=== PATIENT | female | born 1995 | race African-American/Black ===

== ENCOUNTER 2017-04-08 13:24 | Emergency (ER) | payer OTHER ==
[2017-04-08] MEDS: ACETAMINOPHEN 325 MG TABLET. PO ×2 (14:20)
== END 2017-04-08 14:59 | disposition home or self-care (01) ==
LOC: ER 13:24
DX: M25.572 Pain in left ankle and joints of left foot (principal); J45.909 Unspecified asthma, uncomplicated; F12.10 Cannabis abuse, uncomplicated
CPT/HCPCS: 73610; 73630; 99284

== ENCOUNTER → 2017-10-29 | Emergency (ER) | payer OTHER ==
[~2017-10-29] VITALS: Ht 162.6 cm; Wt 78.5 kg
[~2017-10-29] MED LIST: ACET325T9 PO; AMOX500C PO; ERYT500T17 PO; FLUC150T PO; HYDR15SO4 PO
[2017-10-29 19:48] VITALS: BP 139/90
--- NOTE | 2017-10-29 20:52 | PHYS DOC ---
Past Medical History Past Medical History: Asthma Past Surgical History: No Surgical History Alcohol Use: None Drug Use: Marijuana Adult General Chief Complaint Chief Complaint: ABSCESS HPI HPI Patient is a 22 year old female who presents to emergency room with complaints of a tender swollen area in her right axilla for the last 2 days. She states she started having problems with this a year and a half ago. She denies any fever, drainage, redness, warmth, or injury. She states she does not have any medical or surgical history, she is not allergic to any medications and does not take any medications. Currently, she reports her pain as a constant 8 out of 10 on the pain scale she states that when the area is touched it becomes a 10 out of 10 on the pain scale. Review of Systems Review of Systems Constitutional: Denies fever or chills [] Musculoskeletal: Denies back pain or joint pain [] Integument: Denies rash, reports hard tender knot in R axilla for the last 2 days, denies any drainage, warmth, or redness. Neurologic: Denies focal weakness or sensory changes [] All other systems were reviewed and found to be within normal limits, except as documented in this note. Allergies Allergies Allergies Coded Allergies Type Severity Reaction Last Updated Verified No Known Drug Allergies 02/04/16 No Physical Exam Physical Exam Constitutional: Well developed, well nourished, no acute distress, non-toxic appearance. [] HENT: Normocephalic, atraumatic, bilateral external ears normal, nose normal. [ ] Eyes: PERRLA, conjunctiva normal, no discharge. [] Skin: Warm, dry, no erythema, no rash; palpable, tender, firm, round, area to medial R axilla consistent with hydradenitis suppurativa Neurologic: Alert and oriented X 3, normal motor function, normal sensory function, no focal deficits noted. [] Psychologic: Affect normal, judgement normal, mood normal. [] Current Patient Data Vital Signs Vital Signs Date Time Temp Pulse Resp B/P (MAP) Pulse Ox O2 Delivery O2 Flow Rate FiO2 10/29/17 19:48 98.7 80 16 139/90 (106) 98 Room Air 98.7 EKG EKG [] Radiology/Procedures Radiology/Procedures [] Course & Med Decision Making Course & Med Decision Making Pertinent Labs and Imaging studies reviewed. (See chart for details) Patient is a 22-year-old female who presents to emergency room today with complaints of a tender swollen area in her right axilla for the last 2 days. Her vital signs are stable in the emergency department. Physical exam patient history are consistent with hidradenitis suppurativa, treated as such. Prescription written for erythromycin 500 mg twice a day for 2 weeks. Patient advised to follow-up with her primary care provider [facility] for further management of this condition.Patient verbalized an understanding of home care, medications, follow-up, and return to ED instructions and was in agreement with the plan of care. [] Dragon Disclaimer Dragon Disclaimer This electronic medical record was generated, in whole or in part, using a voice recognition dictation system. Departure Departure Impression: Primary Impression: Hidradenitis suppurativa of right axilla Disposition: HOME, SELF-CARE Condition: STABLE Referrals: UNKNOWN PCP NAME (PCP) Patient Instructions: Hidradenitis Suppurativa, Sweat Gland Abscess Additional Instructions: Fill Prescription and use as directed. Strongly recommend that you stop shaving your armpits. You may apply warm moist packs for comfort. Follow-up with her primary care doctor or [facility] within the next week for further evaluation and management of this condition. Return to the ER for symptoms worsen Scripts Erythromycin Base (ERYTHROMYCIN) 500 Mg Tablet 500 MG PO BID for 14 Days, #28 TAB 0 Refills Prov: PIPPA LAINEZ APRN 10/29/17 PIPPA LAINEZ APRN Oct 29, 2017 20:51
== END ==
LOC: ER 18:28
DX: L73.2 Hidradenitis suppurativa (principal); J45.909 Unspecified asthma, uncomplicated
CPT/HCPCS: 99283

== ENCOUNTER 2018-07-15 16:52 | Emergency (ER) | payer OTHER ==
[~2018-07-15] VITALS: Ht 162.6 cm; Wt 77.1 kg
[~2018-07-15 16:52] MED LIST changes: -HYDR15SO4 PO; +HYDR15SO6 PO
[2018-07-15 17:32] LABS: BILIRUBIN,URINE NEGATIVE (NEG); CLARITY,URINE CLEAR; COLOR,URINE YELLOW; NITRITE,URINE NEGATIVE (NEG); PH,URINE 7.5; PROTEIN,URINE NEGATIVE (NEG-TRACE)
[2018-07-15 17:37] LABS: RBC,URINE 0 /HPF (0-2); SQUAMOUS EPITHELIAL CELL,UR MOD /LPF; WBC,URINE 0 /HPF (0-4)
[2018-07-15 17:38] LABS: BACTERIA,URINE FEW /HPF (0-FEW)
--- NOTE | 2018-07-15 17:40 | PHYS DOC ---
Past Medical History Past Medical History: Asthma (AGUSTIN TAN APRN) Past Surgical History: No Surgical History (AGUSTIN TAN APRN) Alcohol Use: None Drug Use: Marijuana (AGUSTIN TAN APRN) Adult General Chief Complaint Chief Complaint: URINARY FREQUENCY HPI HPI Patient is a 22 year old female who presents with urinary frequency and pressure times a week. Has associated symptoms of nausea. Has also been having pelvic pain and RLQ pain. Rates her pain 7 out of 10 character the pain is pressure. (AGUSTIN TAN APRN) Review of Systems Review of Systems Constitutional: Denies fever or chills [] Eyes: Denies change in visual acuity, redness, or eye pain [] HENT: Denies nasal congestion or sore throat [] Respiratory: Denies cough or shortness of breath [] Cardiovascular: No additional information not addressed in HPI [] GI: Denies vomiting, bloody stools or diarrhea but reports abdominal pain (RLQ, and pelvic pain, and nausea [] : Denies dysuria or hematuria but reports frequency and pressure. Musculoskeletal: Reports Left lower back pain denies joint pain. Integument: Denies rash or skin lesions [] Neurologic: Denies headache, focal weakness or sensory changes [] Endocrine: Denies polyuria or polydipsia [] Complete systems were reviewed and found to be within normal limits, except as documented in this note. (AGUSTIN TAN APRN) Current Medications Current Medications Current Medications Medications (Trade) Dose Ordered Sig/Carla Start Time Stop Time Status Last Admin Dose Admin Azithromycin (Zithromax) 1,000 mg 1X ONCE 07/15/18 19:00 07/15/18 19:01 DC 07/15/18 19:51 1,000 MG Ceftriaxone Sodium (Rocephin Im) 250 mg 1X ONCE 07/15/18 19:00 07/15/18 19:01 DC 07/15/18 19:51 250 MG Info (CONTRAST GIVEN -- Rx MONITORING) 1 each PRN DAILY PRN 07/15/18 18:15 07/15/18 20:32 DC Iohexol (Omnipaque 300 Mg/ml) 75 ml 1X ONCE 07/15/18 18:00 07/15/18 18:03 DC 07/15/18 19:05 75 ML Ondansetron HCl (Zofran) 4 mg 1X ONCE 07/15/18 18:00 07/15/18 18:01 DC 07/15/18 18:29 4 MG Sodium Chloride 1,000 ml @ 1,000 mls/hr Q1H 07/15/18 17:46 07/15/18 18:45 DC 07/15/18 18:29 1,000 MLS/HR (ANATOLIY RAMOS MD) Allergies Allergies Allergies Coded Allergies Type Severity Reaction Last Updated Verified No Known Drug Allergies 02/04/16 No (ANATOLIY RAMOS MD) Physical Exam Physical Exam Constitutional: Well developed, well nourished, no acute distress, non-toxic appearance. [] HENT: Normocephalic, atraumatic, bilateral external ears normal, oropharynx moist, no oral exudates, nose normal. [] Eyes: PERRLA, EOMI, conjunctiva normal, no discharge. [] Neck: Normal range of motion, no tenderness, supple, no stridor. [] Cardiovascular:Heart rate regular rhythm, no murmur [] Lungs & Thorax: Bilateral breath sounds clear to auscultation [] Abdomen: Soft, RLQ tenderness, no rovsings sign, no rebound tenderness, no heel tap tenderness, no masses, no pulsatile masses. [] Skin: Warm, dry, no erythema, no rash. [] Back: Left lower tenderness, no CVA tenderness. [] Extremities: No tenderness, no cyanosis, no clubbing, ROM intact, no edema. [] Neurologic: Alert and oriented X 3, normal motor function, normal sensory function, no focal deficits noted. [] Psychologic: Affect normal, judgement normal, mood normal. [] (AGUSTIN TAN APRN) Current Patient Data Vital Signs Vital Signs Date Time Temp Pulse Resp B/P (MAP) Pulse Ox O2 Delivery O2 Flow Rate FiO2 07/15/18 20:12 80 16 108/72 (84) 99 Room Air 07/15/18 17:35 99.1 99.1 (ANATOLIY RAMOS MD) Lab Values Laboratory Tests Test 07/15/18 17:15 07/15/18 17:22 07/15/18 18:17 Urine Collection Type Unknown Urine Color Yellow Urine Clarity Clear Urine pH 7.5 Urine Specific M[place] >=1.030 Urine Protein Negative mg/dL (NEG-TRACE) Urine Glucose (UA) Negative mg/dL (NEG) Urine Ketones (Stick) Negative mg/dL (NEG) Urine Blood Negative (NEG) Urine Nitrite Negative (NEG) Urine Bilirubin Negative (NEG) Urine Urobilinogen Dipstick 1.0 mg/dL (0.2 mg/dL) Urine Leukocyte Esterase Negative (NEG) Urine RBC 0 /HPF (0-2) Urine WBC 0 /HPF (0-4) Urine Squamous Epithelial Cells Mod /LPF Urine Bacteria Few /HPF (0-FEW) Urine Mucus Mod /LPF POC Urine HCG, Qualitative Hcg negative (Negative) White Blood Count 5.4 x10^3/uL (4.0-11.0) Red Blood Count 4.45 x10^6/uL (3.50-5.40) Hemoglobin 13.0 g/dL (12.0-15.5) Hematocrit 38.5 % (36.0-47.0) Mean Corpuscular Volume 87 fL (79-100) Mean Corpuscular Hemoglobin 29 pg (25-35) Mean Corpuscular Hemoglobin Concent 34 g/dL (31-37) Red Cell Distribution Width 12.6 % (11.5-14.5) Platelet Count 357 x10^3/uL (140-400) Neutrophils (%) (Auto) 40 % (31-73) Lymphocytes (%) (Auto) 47 % (24-48) Monocytes (%) (Auto) 9 % (0-9) Eosinophils (%) (Auto) 3 % (0-3) Basophils (%) (Auto) 1 % (0-3) Neutrophils # (Auto) 2.2 x10^3uL (1.8-7.7) Lymphocytes # (Auto) 2.5 x10^3/uL (1.0-4.8) Monocytes # (Auto) 0.5 x10^3/uL (0.0-1.1) Eosinophils # (Auto) 0.2 x10^3/uL (0.0-0.7) Basophils # (Auto) 0.0 x10^3/uL (0.0-0.2) Sodium Level 140 mmol/L (136-145) Potassium Level 3.6 mmol/L (3.5-5.1) Chloride Level 104 mmol/L (98-107) Carbon Dioxide Level 24 mmol/L (21-32) Anion Gap 12 (6-14) Blood Urea Nitrogen 16 mg/dL (7-20) Creatinine 0.7 mg/dL (0.6-1.0) Estimated GFR (Cockcroft-Gault) 125.5 BUN/Creatinine Ratio 23 (6-20) H Glucose Level 95 mg/dL (70-99) Calcium Level 9.0 mg/dL (8.5-10.1) Total Bilirubin 0.4 mg/dL (0.2-1.0) Aspartate Amino Transferase (AST) 17 U/L (15-37) Alanine Aminotransferase (ALT) 19 U/L (14-59) Alkaline Phosphatase 79 U/L (46-116) Total Protein 8.0 g/dL (6.4-8.2) Albumin 4.0 g/dL (3.4-5.0) Albumin/Globulin Ratio 1.0 (1.0-1.7) Lipase 67 U/L (73-393) L Laboratory Tests 07/15/18 18:17 Laboratory Tests 07/15/18 18:17 Microbiology 07/15/18 Wet Prep - Final, Complete (ANATOLIY RAMOS MD) EKG EKG [] (AGUSTIN TAN APRN) Radiology/Procedures Radiology/Procedures Pelvic Exam: External exam is normal and without rash, No CMT, OS is closed, large amount of white discharge, uterus NTTP, No adnexal masses or tenderness noted[] STD swabs collected and sent. PATIENT: SUSANNA RAMOS ACCOUNT: [id number] : 1995 LOCATION: ER AGE: 22 SEX: F EXAM STATUS: REG ER ORD. PHYSICIAN: AGUSTIN TAN APRN REASON: RLQ pain PROCEDURE: PELVIS W/TV Pelvic ultrasound to include transabdominal and transvaginal imaging 07/15/2018 CLINICAL HISTORY: Right-sided pelvic pain. TECHNIQUE: Using the distended urinary bladder as a sonographic window, a real-time ultrasound examination of pelvis was formed. Additionally in an attempt to better evaluate the uterus and adnexa, a transvaginal ultrasound study was performed. Multiple images were obtained. FINDINGS: The uterus is within normal limits in size. It measures 6.4 x 4.1 x 3.6 cm in longitudinal, transverse and AP dimensions. The endometrial echo complex measures 9 mm in thickness which is within normal limits. A oval-shaped hypoechoic mass is seen superior to the fundus of the uterus which measures 2.9 cm in greatest diameter. This likely represents a uterine fibroid. The right ovary is normal in size and echogenicity. It measures 3.1 x 1.9 x 1.8 cm in size. The left ovary is normal in size. It measures 3.1 x 3.4 x 2 cm in size. Within the left ovary a rounded anechoic structure is seen which measures 3.1 cm in greatest diameter. This is consistent with a simple cyst. No free fluid is seen. IMPRESSION: 1. 2.9 cm probable uterine fibroid. 2. 3.1 cm left ovarian cyst. Electronically signed by: Jaskaran Morillo MD (07/15/2018 7:50 PM) [facility] PATIENT: SUSANNA RAMOS ACCOUNT: [id number] : 1995 LOCATION: ER AGE: 22 SEX: F EXAM STATUS: REG ER ORD. PHYSICIAN: AGUSTIN TAN APRN REASON: RLQ pain PROCEDURE: CT ABD PELV W/ IV CONTRST ONLY CT scan abdomen and pelvis with contrast 07/15/2018 CLINICAL HISTORY: Right lower quadrant abdominal pain. TECHNIQUE: After the intravenous administration 75 cc of Omnipaque 300, contiguous, 5 mm axial sections were obtained through abdomen and pelvis. One or more of the following individualized dose reduction techniques were utilized for this study: 1. Automated exposure control. 2. Adjustment of the mA and/or kV according to patient size. 3. Use of iterative reconstruction technique. FINDINGS: Comparison is made to the patient's pelvic ultrasound performed earlier today. Images through the lung bases are within normal limits. The liver, spleen, pancreas, adrenal glands and kidneys are within normal limits. The abdominal aorta tapers normally. The gallbladder is contracted. No free fluid or free air is within the abdomen. There is no evidence of bowel obstruction. The appendix extends into the pelvis. The appendix is partially visualized and is within normal limits. Images through the pelvis demonstrate a 3.1 cm rounded low-attenuation lesion involving the left ovary consistent with a left ovarian cyst. No free fluid is seen. Calcifications are seen within the pelvis consistent with phleboliths. Very mild S-shaped curvature of the thoracolumbar spine is noted. IMPRESSION: 3.1 cm left ovarian cyst. Electronically signed by: Jaskaran Morillo MD (07/15/2018 8:03 PM) [facility] (AGUSTIN TAN APRN) Course & Med Decision Making Course & Med Decision Making Pertinent Labs and Imaging studies reviewed. (See chart for details) Will get urinalysis and urine . Patient is agreeable. Urinalysis is negative. Will get CT, labs, ultrasound, and do a pelvic with STD testing. Imaging shows uterine fibroid and ovarian cyst. Will have follow up with [facility]. Labs were unremarkable. Wet mount showed no trich or clue cells. Pelvic exam had lots of white discharge will treat preemptively for GC/Chlamydia. Will d/c home patient is agreeable. (AGUSTIN TAN APRN) Course & Med Decision Making Staff Physician Addendum: I was working in the ER during the course of this patient's visit. I was available for consultation as needed, but I was not directly involved in the care of this patient. (ANATOLIY RAMOS MD) Dragon Disclaimer Dragon Disclaimer This electronic medical record was generated, in whole or in part, using a voice recognition dictation system. (AGUSTIN TAN APRN) Departure Departure Impression: Primary Impression: Ovarian cyst Additional Impressions: Uterine fibroid Screen for STD (sexually transmitted disease) Disposition: HOME, SELF-CARE Condition: STABLE Referrals: MISSY KEYES (PCP) ALBERT BEACH MD Patient Instructions: Ovarian Cyst, [id number], Uterine Fibroid, [id number] Additional Instructions: No sex for 2 weeks. If tests come back positive. Have partner get treated. Follow up with [facility]. Problem Qualifiers Primary Impression: Ovarian cyst Laterality: unspecified laterality Qualified Codes: N83.209 - Unspecified ovarian cyst, unspecified side Additional Impressions: Uterine fibroid Uterine leiomyoma location: unspecified location Qualified Codes: D25.9 - Leiomyoma of uterus, unspecified AGUSTIN TAN APRN July 15, 2018 17:40 ANATOLIY RAMOS MD July 16, 2018 06:35
[2018-07-15] MEDS ORDERED: IV NORMAL SALINE 1000ML BAG 1,000 ML IV SCH (17:46)
[2018-07-15] MEDS ORDERED: IOHEXOL 300 MG/ML 100ML VIAL. IV ONE (18:00)
[2018-07-15] MEDS ORDERED: ONDANSETRON PF 4 MG/2 ML VIAL. IV ONE (18:00)
[2018-07-15] MEDS ORDERED: CONTRAST GIVEN. MC PRN (18:15)
[2018-07-15 18:24] LABS: BASO % 1 % (0-3); EOS # 0.2 x10^3/uL (0.0-0.7); EOS % 3 % (0-3); HEMATOCRIT 38.5 % (36.0-47.0); LYMPH # 2.5 x10^3/uL (1.0-4.8); LYMPH % 47 % (24-48); MEAN CORPUSCULAR HEMOGLOBIN 29 pg (25-35); MEAN CORPUSCULAR HGB CONC 34 g/dL (31-37); MEAN CORPUSCULAR VOLUME 87 fL (79-100); MONO # 0.5 x10^3/uL (0.0-1.1); MONO % 9 % (0-9); NEUT # 2.2 x10^3uL (1.8-7.7); NEUT % 40 % (31-73); PLATELET COUNT 357 x10^3/uL (140-400); RED BLOOD COUNT 4.45 x10^6/uL (3.50-5.40); RED CELL DISTRIBUTION WIDTH 12.6 % (11.5-14.5); WHITE BLOOD COUNT 5.4 x10^3/uL (4.0-11.0)
[2018-07-15 18:38] LABS: CREATININE 0.7 mg/dL (0.6-1.0); GFR 125.5; POTASSIUM 3.6 mmol/L (3.5-5.1)
[2018-07-15 18:43] LABS: TOTAL BILIRUBIN 0.4 mg/dL (0.2-1.0)
[2018-07-15] MEDS ORDERED: cefTRIAXone IM 250 MG VIAL IM ONE (19:00)
[2018-07-15] MEDS ORDERED: AZITHROMYCIN 250 MG TABLET. PO ONE (19:00)
--- NOTE | 2018-07-15 19:53 | RAD ---
Pelvic ultrasound to include transabdominal and transvaginal imaging 07/15/2018 CLINICAL HISTORY: Right-sided pelvic pain. TECHNIQUE: Using the distended urinary bladder as a sonographic window, a real-time ultrasound examination of pelvis was formed. Additionally in an attempt to better evaluate the uterus and adnexa, a transvaginal ultrasound study was performed. Multiple images were obtained. FINDINGS: The uterus is within normal limits in size. It measures 6.4 x 4.1 x 3.6 cm in longitudinal, transverse and AP dimensions. The endometrial echo complex measures 9 mm in thickness which is within normal limits. A oval-shaped hypoechoic mass is seen superior to the fundus of the uterus which measures 2.9 cm in greatest diameter. This likely represents a uterine fibroid. The right ovary is normal in size and echogenicity. It measures 3.1 x 1.9 x 1.8 cm in size. The left ovary is normal in size. It measures 3.1 x 3.4 x 2 cm in size. Within the left ovary a rounded anechoic structure is seen which measures 3.1 cm in greatest diameter. This is consistent with a simple cyst. No free fluid is seen. IMPRESSION: 1. 2.9 cm probable uterine fibroid. 2. 3.1 cm left ovarian cyst. Electronically signed by: Jaskaran Morillo MD (07/15/2018 7:50 PM) [facility]
--- NOTE | 2018-07-15 20:06 | RAD ---
CT scan abdomen and pelvis with contrast 07/15/2018 CLINICAL HISTORY: Right lower quadrant abdominal pain. TECHNIQUE: After the intravenous administration 75 cc of Omnipaque 300, contiguous, 5 mm axial sections were obtained through abdomen and pelvis. One or more of the following individualized dose reduction techniques were utilized for this study: 1. Automated exposure control. 2. Adjustment of the mA and/or kV according to patient size. 3. Use of iterative reconstruction technique. FINDINGS: Comparison is made to the patient's pelvic ultrasound performed earlier today. Images through the lung bases are within normal limits. The liver, spleen, pancreas, adrenal glands and kidneys are within normal limits. The abdominal aorta tapers normally. The gallbladder is contracted. No free fluid or free air is within the abdomen. There is no evidence of bowel obstruction. The appendix extends into the pelvis. The appendix is partially visualized and is within normal limits. Images through the pelvis demonstrate a 3.1 cm rounded low-attenuation lesion involving the left ovary consistent with a left ovarian cyst. No free fluid is seen. Calcifications are seen within the pelvis consistent with phleboliths. Very mild S-shaped curvature of the thoracolumbar spine is noted. IMPRESSION: 3.1 cm left ovarian cyst. Electronically signed by: Jaskaran Morillo MD (07/15/2018 8:03 PM) [facility]
[2018-07-15 20:12] VITALS: BP 108/72
[2018-07-17 14:18] LABS: GC PROBE Negative (Negative)
== END 2018-07-15 20:27 | disposition home or self-care (01) ==
LOC: ER 16:52
DX: N83.202 Unspecified ovarian cyst, left side (principal); D25.9 Leiomyoma of uterus, unspecified; Z20.2 Contact with and (suspected) exposure to infections with a predominantly sexual mode of transmission; J45.909 Unspecified asthma, uncomplicated
CPT/HCPCS: 36415; 74177; 76830; 76856; 80053; 81001; 81025; 83690; 85025; 87491; 87591; 96372; 96374; 99285; J0696; J2405; J7030; Q0111; Q0144; Q9967

== ENCOUNTER 2018-10-17 07:25 | Emergency (ER) | payer OTHER ==
[~2018-10-17] VITALS: Ht 167.6 cm; Wt 86.2 kg
[2018-10-17 07:35] VITALS: BP 139/97
[2018-10-17] MEDS ORDERED: AMOX500C PO (07:46)
--- NOTE | 2018-10-17 07:46 | PHYS DOC ---
Past Medical History Past Medical History: Asthma Past Surgical History: No Surgical History Smoking: Cigarettes (The patient is a nonsmoker.) Alcohol Use: None Drug Use: Marijuana Adult General Chief Complaint Chief Complaint: SORE THROAT HPI HPI Patient is a 23-year-old female presents to the emergency department for evaluation of a sore throat, which began this morning when she awakened. She denies any nasal congestion. She does admit some mild right-sided otalgia. She has not had any fevers, headache, nausea, or vomiting. Denies . Review of Systems Review of Systems Constitutional: Denies fever or chills [] Eyes: Denies change in visual acuity, redness, or eye pain [] HENT: Denies nasal congestion . Admits to otalgia and sore throat [] Respiratory: Denies cough or shortness of breath [] Integument: Denies rash or skin lesions [] Neurologic: Denies headache Allergies Allergies Allergies Coded Allergies Type Severity Reaction Last Updated Verified No Known Drug Allergies 02/04/16 No Physical Exam Physical Exam PHYSICAL EXAM: CONSTITUTIONAL: Well developed, well nourished HEAD: normocephalic, atraumatic EENT: PERRL, EOMI. Conjunctivae normal color, sclerae non-icteric; moist mucous membranes. The tympanic membranes and external auditory canals are normal bilaterally. The pharynx is erythematous, with mild bilateral tonsil enlargement, with exudate. Uvula is midline. There is no peritonsillar edema. There is mildly tender submandibular lymphadenopathy present bilaterally. NECK: Supple, non-tender; no meningismus. The voice is normal. No laryngeal ten derness. LUNGS: Lungs CTA, breathing even and unlabored. Normal air movement. HEART: Regular rate and rhythm, no murmur SKIN: No rash; no diaphoresis NEURO: Alert; normal speech and cognition; CN's grossly intact; strength grossly intact without focal deficit. EKG EKG [] Radiology/Procedures Radiology/Procedures [] Course & Med Decision Making Course & Med Decision Making Patient remains stable. I discussed diagnosis and care plan, the need for close follow-up, and return precautions. Dragon Disclaimer Dragon Disclaimer This electronic medical record was generated, in whole or in part, using a voice recognition dictation system. Departure Departure Impression: Primary Impression: Pharyngitis Disposition: 01 HOME, SELF-CARE Condition: STABLE Referrals: MISSY KEYES (PCP) Patient Instructions: Viral and Bacterial Pharyngitis Scripts Amoxicillin (AMOXICILLIN) 500 Mg Capsule 1 CAP PO TID, #30 CAP Prov: CLIFFORD DIAZ MD 10/17/18 CLIFFORD DIAZ MD Oct 17, 2018 07:46
== END 2018-10-17 07:51 | disposition home or self-care (01) ==
LOC: ER 07:25
DX: J02.9 Acute pharyngitis, unspecified (principal); H92.01 Otalgia, right ear; J45.909 Unspecified asthma, uncomplicated
CPT/HCPCS: 99283

== ENCOUNTER 2018-12-26 07:10 | Emergency (ER) | payer OTHER ==
[~2018-12-26] VITALS: Ht 167.6 cm; Wt 96.2 kg
[2018-12-26 07:20] VITALS: BP 137/91
--- NOTE | 2018-12-26 07:25 | PHYS DOC ---
Past Medical History Past Medical History: No Pertinent History, Asthma Past Surgical History: No Surgical History Alcohol Use: None Drug Use: Marijuana Adult General Chief Complaint Chief Complaint: SORE THROAT HPI HPI Patient is a 23-year-old female who presents with complaint of sore throat and white patches on her tonsils for about a week now. Patient states that symptoms are just not improving. She is not sure whether or not she is been running a fever. She denies any chest pain or shortness of breath. She also denies any nausea or vomiting.[] Review of Systems Review of Systems Constitutional: Denies fever or chills [] HENT: Positive sore throat [] Respiratory: Denies cough or shortness of breath [] Cardiovascular: No additional information not addressed in HPI [] Integument: Denies rash or skin lesions [] Allergies Allergies Allergies Coded Allergies Type Severity Reaction Last Updated Verified No Known Drug Allergies 02/04/16 No Physical Exam Physical Exam Constitutional: Well developed, well nourished, no acute distress, non-toxic appearance. [] HENT: Normocephalic, atraumatic, tonsils are 3+, erythematous with patchy exudates. [] Neck: Normal range of motion, no tenderness, supple. [] Cardiovascular: Regular rate and rhythm[] Lungs & Thorax: Bilateral breath sounds clear to auscultation [] Skin: Warm, dry, no erythema, no rash. [] Current Patient Data Vital Signs Vital Signs Date Time Temp Pulse Resp B/P (MAP) Pulse Ox O2 Delivery O2 Flow Rate FiO2 12/26/18 07:20 98.4 103 16 137/91 (106) 98 Room Air 98.4 Lab Values Laboratory Tests Test 12/26/18 07:40 Group A Streptococcus Rapid Negative (NEGATIVE) EKG EKG [] Radiology/Procedures Radiology/Procedures [] Course & Med Decision Making Course & Med Decision Making Pertinent Labs and Imaging studies reviewed. (See chart for details) [] Dragon Disclaimer Dragon Disclaimer This electronic medical record was generated, in whole or in part, using a voice recognition dictation system. Departure Departure Impression: Primary Impression: Tonsillitis Disposition: HOME, SELF-CARE Condition: STABLE Referrals: MISSY KEYES (PCP) Patient Instructions: Tonsillectomy, Information Before and After Scripts Penicillin V Potassium (PENICILLIN V POTASSIUM) 500 Mg Tablet 1 TAB PO QID, #40 TAB Prov: CHERYL PEREZ Jr. DO 12/26/18 CHERYL PEREZ Jr. DO Dec 26, 2018 07:25
[2018-12-26] MEDS ORDERED: PENI500T PO (07:52)
== END 2018-12-26 08:18 | disposition home or self-care (01) ==
LOC: ER 07:10
DX: J03.90 Acute tonsillitis, unspecified (principal); J45.909 Unspecified asthma, uncomplicated
CPT/HCPCS: 87070; 87880; 99283

== ENCOUNTER 2019-01-23 08:50 | Emergency (ER) | payer OTHER ==
[~2019-01-23] VITALS: Ht 167.6 cm; Wt 90.7 kg
[~2019-01-23 08:50] MED LIST changes: +PENI500T PO
[2019-01-23] MEDS ORDERED: IV NORMAL SALINE 1000ML BAG 1,000 ML IV SCH (09:53)
[2019-01-23] MEDS ORDERED: ONDANSETRON PF 4 MG/2 ML VIAL. IV ONE (10:00)
[2019-01-23 10:58] LABS: BASO # 0.1 x10^3/uL (0.0-0.2); BASO % 1 % (0-3); EOS % 0 % (0-3); HEMATOCRIT 44.5 % (36.0-47.0); HEMOGLOBIN 15.5 g/dL (12.0-15.5); LYMPH % 10 % (24-48); MEAN CORPUSCULAR HEMOGLOBIN 30 pg (25-35); MEAN CORPUSCULAR HGB CONC 35 g/dL (31-37); MEAN CORPUSCULAR VOLUME 87 fL (79-100); MONO # 0.3 x10^3/uL (0.0-1.1); MONO % 3 % (0-9); NEUT # 8.5 x10^3/uL (1.8-7.7); NEUT % 86 % (31-73); PLATELET COUNT 470 x10^3/uL (140-400); RED BLOOD COUNT 5.14 x10^6/uL (3.50-5.40); RED CELL DISTRIBUTION WIDTH 13.4 % (11.5-14.5); WHITE BLOOD COUNT 9.9 x10^3/uL (4.0-11.0)
[2019-01-23 11:18] LABS: BILIRUBIN,URINE NEGATIVE (NEG); CLARITY,URINE CLEAR; COLOR,URINE YELLOW; NITRITE,URINE NEGATIVE (NEG); PH,URINE 5.5; PROTEIN,URINE 30 mg/dL (NEG-TRACE); UROBILINOGEN,URINE 0.2 mg/dL (0.2 mg/dL)
[2019-01-23 11:21] LABS: CALCIUM 9.7 mg/dL (8.5-10.1); CREATININE 0.7 mg/dL (0.6-1.0); GFR 124.4; POTASSIUM 4.1 mmol/L (3.5-5.1)
[2019-01-23 11:25] LABS: SQUAMOUS EPITHELIAL CELL,UR MOD /LPF
[2019-01-23 11:26] LABS: BACTERIA,URINE MANY /HPF (0-FEW)
[2019-01-23 11:26] LABS: ALBUMIN 4.5 g/dL (3.4-5.0); ALBUMIN/GLOBULIN RATIO 0.8 (1.0-1.7); TOTAL BILIRUBIN 0.6 mg/dL (0.2-1.0); TOTAL PROTEIN 10.1 g/dL (6.4-8.2)
[2019-01-23] MEDS ORDERED: KETOROLAC 30 MG/ML VIAL. IVP ONE (11:30)
--- NOTE | 2019-01-23 11:30 | PHYS DOC ---
Past Medical History Past Medical History: Asthma Past Surgical History: Tonsillectomy Alcohol Use: None Drug Use: None Adult General Chief Complaint Chief Complaint: ABDOMINAL PAIN HPI HPI Patient is a 23 year old female with history of asthma who presents with complaining of abdominal pain. Patient states she had a tonsillectomy one week ago and taking oxycodone and did not have any bowel movement for the last 1 week and did not take any medication for her patient. Patient states she had constant abdominal pain since this morning as a sharp pain without radiation associated with 2 or 3 episodes of vomiting and constant nausea. Patient denies urinary symptoms, , fever and chills, history of the same problem. Review of Systems Review of Systems Constitutional: Denies fever or chills [] Eyes: Denies change in visual acuity, redness, or eye pain [] HENT: Denies nasal congestion or sore throat [] Respiratory: Denies cough or shortness of breath [] Cardiovascular: No additional information not addressed in HPI [] GI: Reports abdominal pain, nausea, vomiting, constipation, denies bloody stools or diarrhea [] : Denies dysuria or hematuria [] Musculoskeletal: Denies back pain or joint pain [] Integument: Denies rash or skin lesions [] Neurologic: Denies headache, focal weakness or sensory changes [] Endocrine: Denies polyuria or polydipsia [] All other systems were reviewed and found to be within normal limits, except as documented in this note. Current Medications Current Medications Current Medications Medications (Trade) Dose Ordered Sig/Carla Start Time Stop Time Status Last Admin Dose Admin Ketorolac Tromethamine (Toradol 30mg Vial) 30 mg 1X ONCE 01/23/19 11:30 01/23/19 11:31 DC 01/23/19 12:06 30 MG Ondansetron HCl (Zofran) 4 mg 1X ONCE 01/23/19 10:00 01/23/19 10:01 DC 01/23/19 11:03 4 MG Sodium Chloride 1,000 ml @ 1,000 mls/hr Q1H 01/23/19 09:53 01/23/19 10:52 DC 01/23/19 11:03 1,000 MLS/HR Allergies Allergies Allergies Coded Allergies Type Severity Reaction Last Updated Verified No Known Drug Allergies 02/04/16 No Physical Exam Physical Exam Constitutional: Well developed, well nourished, mild distress, non-toxic appearance. [] HENT: Normocephalic, atraumatic. Eyes: PERRLA, EOMI, conjunctiva normal, no discharge. [] Neck: Normal range of motion, no tenderness, supple, no stridor. [] Cardiovascular:Heart rate regular rhythm, no murmur [] Lungs & Thorax: Bilateral breath sounds clear to auscultation [] Abdomen: Bowel sounds normal, soft, no tenderness, no masses, no pulsatile m asses. [] Skin: Warm, dry, no erythema, no rash. [] Back: No tenderness, no CVA tenderness. [] Extremities: No tenderness, no cyanosis, no clubbing, ROM intact, no edema. [] Neurologic: Alert and oriented X 3, no focal deficits noted. [] Psychologic: Affect normal, judgement normal, mood normal. [] Current Patient Data Vital Signs Vital Signs Date Time Temp Pulse Resp B/P (MAP) Pulse Ox O2 Delivery O2 Flow Rate FiO2 01/23/19 12:22 102 14 120/73 (89) 97 Room Air 01/23/19 09:00 98.3 98.3 Lab Values Laboratory Tests Test 01/23/19 10:50 01/23/19 10:59 01/23/19 11:06 White Blood Count 9.9 x10^3/uL (4.0-11.0) Red Blood Count 5.14 x10^6/uL (3.50-5.40) Hemoglobin 15.5 g/dL (12.0-15.5) Hematocrit 44.5 % (36.0-47.0) Mean Corpuscular Volume 87 fL (79-100) Mean Corpuscular Hemoglobin 30 pg (25-35) Mean Corpuscular Hemoglobin Concent 35 g/dL (31-37) Red Cell Distribution Width 13.4 % (11.5-14.5) Platelet Count 470 x10^3/uL (140-400) H Neutrophils (%) (Auto) 86 % (31-73) H Lymphocytes (%) (Auto) 10 % (24-48) L Monocytes (%) (Auto) 3 % (0-9) Eosinophils (%) (Auto) 0 % (0-3) Basophils (%) (Auto) 1 % (0-3) Neutrophils # (Auto) 8.5 x10^3/uL (1.8-7.7) H Lymphocytes # (Auto) 1.0 x10^3/uL (1.0-4.8) Monocytes # (Auto) 0.3 x10^3/uL (0.0-1.1) Eosinophils # (Auto) 0.0 x10^3/uL (0.0-0.7) Basophils # (Auto) 0.1 x10^3/uL (0.0-0.2) Segmented Neutrophils % 75 % (35-66) H Band Neutrophils % 4 % (0-9) Lymphocytes % 18 % (24-48) L Monocytes % 2 % (0-10) Eosinophils % 1 % (0-5) Platelet Estimate Increased (ADEQUATE) Sodium Level 138 mmol/L (136-145) Potassium Level 4.1 mmol/L (3.5-5.1) Chloride Level 99 mmol/L (98-107) Carbon Dioxide Level 16 mmol/L (21-32) L Anion Gap 23 (6-14) H Blood Urea Nitrogen 17 mg/dL (7-20) Creatinine 0.7 mg/dL (0.6-1.0) Estimated GFR (Cockcroft-Gault) 124.4 BUN/Creatinine Ratio 24 (6-20) H Glucose Level 66 mg/dL (70-99) L Calcium Level 9.7 mg/dL (8.5-10.1) Total Bilirubin 0.6 mg/dL (0.2-1.0) Aspartate Amino Transferase (AST) 41 U/L (15-37) H Alanine Aminotransferase (ALT) 38 U/L (14-59) Alkaline Phosphatase 103 U/L (46-116) Total Protein 10.1 g/dL (6.4-8.2) H Albumin 4.5 g/dL (3.4-5.0) Albumin/Globulin Ratio 0.8 (1.0-1.7) L Lipase 37 U/L (73-393) L Urine Collection Type Void Urine Color Yellow Urine Clarity Clear Urine pH 5.5 Urine Specific [place] 1.025 Urine Protein 30 mg/dL (NEG-TRACE) Urine Glucose (UA) Negative mg/dL (NEG) Urine Ketones (Stick) >=80 mg/dL (NEG) Urine Blood Negative (NEG) Urine Nitrite Negative (NEG) Urine Bilirubin Negative (NEG) Urine Urobilinogen Dipstick 0.2 mg/dL (0.2 mg/dL) Urine Leukocyte Esterase Negative (NEG) Urine RBC 1-2 /HPF (0-2) Urine WBC 1-4 /HPF (0-4) Urine Squamous Epithelial Cells Mod /LPF Urine Bacteria Many /HPF (0-FEW) Urine Mucus Slight /LPF POC Urine HCG, Qualitative Hcg negative (Negative) Laboratory Tests 01/23/19 10:50 Laboratory Tests 01/23/19 10:50 EKG EKG [] Radiology/Procedures Radiology/Procedures [][facility] [address] [place] [address] IMAGING REPORT Signed PATIENT: SUSNANA RAMOS ACCOUNT: [id number] : 1995 LOCATION: ER AGE: 23 SEX: F EXAM STATUS: REG ER ORD. PHYSICIAN: FAISAL DEMARCO MD REASON: constipation and abdominal pain PROCEDURE: ABDOMEN SUPINE & UPRIGHT 2 views of the abdomen 01/23/2019 INDICATION: Abdominal pain, constipation COMPARISON STUDY: CT of the abdomen and pelvis July 15, 2018 FINDINGS: The bowel gas pattern is nonobstructive. No gross pneumoperitoneum is identified. No pathologic calcifications are identified. No acute osseous changes are identified. IMPRESSION: No radiographic evidence of acute intra-abdominal abnormality. Electronically signed by: Med Greenwood MD (01/23/2019 11:59 AM) [facility] DICTATED and SIGNED BY: MED GREENWOOD MD DATE: 01/23/19 1159 Course & Med Decision Making Course & Med Decision Making Pertinent Labs and Imaging studies reviewed. (See chart for details) Evaluation of patient in ER showed 23-year-old female patient with complaining of abdominal pain and nausea and vomiting after she had constipation for 7 days with taking oxycodone after tonsillectomy. Patient had unremarkable labs except for blood sugar 66 and tolerated oral intake. Patient felt better with treatment in ER. Plan to discharge patient home with diagnose of constipation and instruction to hold on oxycodone. I've spoken with the patient and/or caregivers. I've explained the patient's condition, diagnosis and treatment plan based on information available to me at this time. I've answered the patient's and/or caregivers questions and addressed any concerns. The patient and/or caregivers have a good understanding the patient's diagnosis, condition and treatment plan as can be expected at this point. Vital signs have been stabilized. The patient's condition is stable for discharge from the emergency department. The patient will pursue further outpatient evaluation with her primary care provider or other designated consulting physician as outlined in the discharge instructions. Patient and/or caregivers are agreeable to this plan of care and follow-up instructions have been explained in detail. The patient and/or caregivers have received these instructions in written format and expressed understanding of these discharge instructions. The patient and her caregivers are aware that if any significant change in condition or worsening of symptoms should prompt him to immediately return to this of the closest emergency department. If an emergent department is not readily available I would encour age him to call 911. [place] Disclaimer Dragon Disclaimer This electronic medical record was generated, in whole or in part, using a voice recognition dictation system. Departure Departure Impression: Primary Impression: Constipation due to pain medication Additional Impressions: Nausea and vomiting Abdominal pain Hypoglycemia Disposition: HOME, SELF-CARE (at 1212) Condition: IMPROVED Referrals: UNKNOWN PCP NAME (PCP) Patient Instructions: Constipation, Adult, Hypoglycemia (Low Blood Sugar), Nausea and Vomiting Additional Instructions: Drink plenty of liquids Follow-up with your primary care physician in 3-5 days Return to ER if not getting better Hold on oxycodone for couple days Scripts Magnesium Citrate (MAGNESIUM CITRATE) 296 Ml Solution 296 ML PO BID, #296 ML Drink half a bottle every 12 hours as needed for constipation Prov: FAISAL DEMARCO MD 01/23/19 Problem Qualifiers Additional Impressions: Nausea and vomiting Vomiting type: unspecified Vomiting Intractability: unspecified Qualified Codes: R11.2 - Nausea with vomiting, unspecified Abdominal pain Abdominal location: unspecified location Qualified Codes: R10.9 - Unspecified abdominal pain FAISAL DEMARCO MD Jan 23, 2019 11:30
--- NOTE | 2019-01-23 12:02 | RAD ---
2 views of the abdomen 01/23/2019 INDICATION: Abdominal pain, constipation COMPARISON STUDY: CT of the abdomen and pelvis July 15, 2018 FINDINGS: The bowel gas pattern is nonobstructive. No gross pneumoperitoneum is identified. No pathologic calcifications are identified. No acute osseous changes are identified. IMPRESSION: No radiographic evidence of acute intra-abdominal abnormality. Electronically signed by: Med Schmidt MD (01/23/2019 11:59 AM) [facility]
[2019-01-23] MEDS ORDERED: MAGN296S9 PO (12:18)
[2019-01-23 12:22] VITALS: BP 120/73
[2019-01-23 12:51] LABS: % BANDS 4 % (0-9); % EOS 1 % (0-5); % LYMPHS 18 % (24-48); % MONOS 2 % (0-10); % SEGS 75 % (35-66); PLT ESTIMATE INCREASED (ADEQUATE)
== END 2019-01-23 12:30 | disposition home or self-care (01) ==
LOC: ER 08:50
DX: K59.00 Constipation, unspecified (principal); R11.2 Nausea with vomiting, unspecified; R73.9 Hyperglycemia, unspecified; J45.909 Unspecified asthma, uncomplicated
CPT/HCPCS: 36415; 74021; 80053; 81001; 81025; 83690; 85007; 85025; 87086; 96361; 96374; 96375; 99285; J1885; J2405; J7030

== ENCOUNTER 2019-09-02 19:22 | Emergency (ER) | payer OTHER ==
[~2019-09-02] VITALS: Ht 172.7 cm; Wt 94.5 kg
[~2019-09-02 19:22] MED LIST changes: +MAGN296S68 PO
[2019-09-02 20:22] LABS: BILIRUBIN,URINE SMALL (NEG); CLARITY,URINE CLEAR; COLOR,URINE AMBER; NITRITE,URINE NEGATIVE (NEG); PH,URINE 5.5 (<5.0-8.0); PROTEIN,URINE NEGATIVE (NEG-TRACE)
[2019-09-02 20:38] LABS: BACTERIA,URINE MODERATE /HPF (0-FEW); SQUAMOUS EPITHELIAL CELL,UR FEW /LPF; WBC,URINE 20-40 /HPF (0-4)
[2019-09-02] MEDS ORDERED: CEPH-264 PO (21:25)
--- NOTE | 2019-09-02 21:25 | PHYS DOC ---
Past Medical History Past Medical History: Asthma Past Surgical History: Tonsillectomy Smoking Status: Never Smoker Alcohol Use: None Drug Use: None General Adult EDM: Chief Complaint: PELVIC PAIN HPI: HPI: Patient is a 23 year old F who is here with suprapubic pressure. She denies vaginal discharge or concerns for STD and she denies dysuria. She did have a UTI about 2 weeks ago and took Macrobid. Review of Systems: Review of Systems: Constitutional: Denies fever or chills. [] Eyes: Denies change in visual acuity. [] HENT: Denies nasal congestion or sore throat. [] Respiratory: Denies cough or shortness of breath. [] Cardiovascular: Denies chest pain or edema. [] GI: Denies abdominal pain, nausea, vomiting, bloody stools or diarrhea. [] : Denies dysuria. [] Musculoskeletal: Denies back pain or joint pain. [] Integument: Denies rash. [] Neurologic: Denies headache, focal weakness or sensory changes. [] Endocrine: Denies polyuria or polydipsia. [] Lymphatic: Denies swollen glands. [] Psychiatric: Denies depression or anxiety. [] Heart Score: Risk Factors: Risk Factors: DM, Current or recent (<one month) smoker, HTN, HLP, family history of CAD, obesity. Risk Scores: Score 0 - 3: 2.5% MACE over next 6 weeks - Discharge Home Score 4 - 6: 20.3% MACE over next 6 weeks - Admit for Clinical Observation Score 7 - 10: 72.7% MACE over next 6 weeks - Early Invasive Strategies Current Medications: Current Medications Medications (Trade) Dose Ordered Sig/Carla Start Time Stop Time Status Last Admin Dose Admin Cephalexin HCl (Keflex) 500 mg 1X ONCE 09/02/19 21:30 09/02/19 21:31 Allergies: Allergies: Allergies Coded Allergies Type Severity Reaction Last Updated Verified No Known Drug Allergies 02/04/16 No Physical Exam: PE: Constitutional: Well developed, well nourished, no acute distress, non-toxic appearance. [] HENT: Normocephalic, atraumatic, bilateral external ears normal, oropharynx moist, no oral exudates, nose normal. [] Eyes: PERRLA, EOMI, conjunctiva normal, no discharge. [] Neck: Normal range of motion, no tenderness, supple, no stridor. [] Cardiovascular:Heart rate regular rhythm, no murmur [] Lungs & Thorax: Bilateral breath sounds clear to auscultation [] Abdomen: Bowel sounds normal, soft, no tenderness, no masses, no pulsatile masses. [] Skin: Warm, dry, no erythema, no rash. [] Back: No tenderness, no CVA tenderness. [] Extremities: No tenderness, no cyanosis, no clubbing, ROM intact, no edema. [] Neurologic: Alert and oriented X 3, normal motor function, normal sensory function, no focal deficits noted. [] Psychologic: Affect normal, judgement normal, mood normal. [] Current Patient Data: Labs: Laboratory Tests Test 09/02/19 19:30 09/02/19 19:35 Urine Collection Type Void Urine Color [place] Urine Clarity Clear Urine pH 5.5 (<5.0-8.0) Urine Specific [place] >=1.030 (1.000-1.030) Urine Protein Negative mg/dL (NEG-TRACE) Urine Glucose (UA) Negative mg/dL (NEG) Urine Ketones (Stick) 40 mg/dL (NEG) Urine Blood Negative (NEG) Urine Nitrite Negative (NEG) Urine Bilirubin Small (NEG) Urine Urobilinogen Dipstick 1.0 mg/dL (0.2 mg/dL) Urine Leukocyte Esterase Moderate (NEG) Urine RBC 1-2 /HPF (0-2) Urine WBC 20-40 /HPF (0-4) Urine Squamous Epithelial Cells Few /LPF Urine Bacteria Moderate /HPF (0-FEW) Urine Mucus Slight /LPF POC Urine HCG, Qualitative Hcg negative (Negative) Vital Signs: Vital Signs Date Time Temp Pulse Resp B/P (MAP) Pulse Ox O2 Delivery O2 Flow Rate FiO2 09/02/19 20:27 93 16 100 09/02/19 19:50 99.5 127/85 (99) Room Air 99.5 EKG: EKG: [] Radiology/Procedures: Radiology/Procedures: [] Course & Med Decision Making: Course & Med Decision Making Pertinent Labs and Imaging studies reviewed. (See chart for details) [] Dragon Disclaimer: Dragon Disclaimer: This electronic medical record was generated, in whole or in part, using a voice recognition dictation system. Departure Departure Impression: Primary Impression: UTI (urinary tract infection) Disposition: HOME, SELF-CARE Condition: STABLE Referrals: UNKNOWN PCP NAME (PCP) Patient Instructions: Urinary Tract Infection, [id number] Additional Instructions: Push fluids, cranberry juice or cranberry pills. Return with any worsening symptoms. Scripts Cephalexin (KEFLEX) 500 Mg Capsule 1 CAP PO TID for 10 Days, #30 CAP 0 Refills Prov: CAMILO WATKINS 09/02/19 CAMILO WATKINS Sep 02, 2019 21:25
[2019-09-02] MEDS ORDERED: CEPHALEXIN 250 MG CAPSULE. PO ONE (21:30)
[2019-09-02] MEDS ORDERED: CEPHALEXIN 250 MG CAPSULE. PO SCH (21:30)
[2019-09-02 21:41] VITALS: BP 102/62
== END 2019-09-02 21:41 | disposition home or self-care (01) ==
LOC: ER 19:22
DX: N39.0 Urinary tract infection, site not specified (principal); R10.2 Pelvic and perineal pain; J45.909 Unspecified asthma, uncomplicated; Z90.89 Acquired absence of other organs
CPT/HCPCS: 81001; 81025; 87086; 99283